=== PATIENT | female | born 1995 | race Caucasian/White ===

== ENCOUNTER 2022-10-04 11:46 | Emergency (ER) | payer MEDICAID, SELFPAY ==
[2022-10-04] MEDS ORDERED: Acetaminophen 500 MG TAB ONE (12:39)
[2022-10-04] MEDS ORDERED: Ondansetron PF 4 MG/2 ML Vial ONE (12:39)
[2022-10-04 12:40] LABS: Bilirubin Neg (Negative); Blood, Urine 10 (Negative); Clarity Cloudy (Clear); Glucose, Urine (Dipstick) Normal (Negative); Ketone, Urine 50 mg/dL (Negative); Leukocyte 500 (Negative); Nitrite Negative (Negative); Protein, Urine (Dipstick) 15 mg/dl (Neg-Trace); Specific Gravity, Urine 1.015 (1.005-1.030); Urobilinogen Normal mg/dL (Less than 2)
[2022-10-04 12:42] LABS: #Monocytes 0.4 10x3/uL (0.0-1.1); #Neutrophils 5.3 10x3/uL (1.5-8.4); %Basophils 0.4 % (0.0-2.0); %Lymphocytes 22.8 % (18.0-47.0); %Monocytes 5.6 % (0.0-10.0); %Neutrophils 70.9 % (40.0-75.0); Hemoglobin 11.4 g/dL (12.0-15.5); Mean Corpuscular HGB CONC 32.9 g/dL (32.0-36.0); Mean Corpuscular Hemoglobin 25.5 pg (27.0-33.0); Mean Corpuscular Volume 77.6 fl (81.6-98.3); Platelet Count 307 10x3/uL (150-450); RBC Distribution Width 14.8 % (11.5-14.5); Red Blood Cell (RBC) Count 4.47 10x6/uL (3.90-5.03); White Blood Cell (WBC) Count 7.5 10x3/uL (3.5-10.5)
[2022-10-04 12:56] LABS: ALT (SGPT) 16 U/L (8-55); AST (SGOT) 17 U/L (5-34); Albumin 4.2 g/dL (3.5-5.0); Alkaline Phosphatase 75 U/L (40-110); Anion Gap 13 mmol/L (10-20); BUN (Urea Nitrogen) 11 mg/dL (7.0-18.7); Bilirubin, Total 0.6 mg/dL (0.2-1.2); Calc. Creatinine Clearance 0 mL/min (70-130); Calcium 9.6 mg/dL (7.8-10.44); Carbon Dioxide 23 mmol/L (22-29); Chloride 105 mmol/L (98-107); Estimated GFR 124; Globulin 3.2 g/dL (2.4-3.5); Glucose 92 mg/dL (70-105); Lipase 10 U/L (8-78); Potassium 3.9 mmol/L (3.5-5.1); Protein, Total 7.4 g/dL (6.0-8.3); Sodium 137 mmol/L (136-145)
[2022-10-04 12:58] LABS: RBC/HPF 0-3 HPF (0-3)
[2022-10-04 12:59] LABS: Bacteria/HPF None Seen HPF (None Seen); WBC/HPF 0-3 HPF (0-3)
[2022-10-04] MEDS ORDERED: Morphine 4 MG/ML VIAL ONE (13:40)
== END 2022-10-04 15:41 | disposition home or self-care (01) ==
LOC: CSHERS 11:46
DX: O21.9 Vomiting of pregnancy, unspecified (principal); O26.891 Other specified pregnancy related conditions, first trimester; R10.12 Left upper quadrant pain; Z3A.08 8 weeks gestation of pregnancy
CPT/HCPCS: 36415; 76856; 80053; 81003; 81015; 83690; 84702; 85025; 86900; 86901; 96361; 96374; 96375; J2270; J2405

== ENCOUNTER 2022-11-02 18:26 | Emergency (ER) | payer MEDICAID, OTHER ==
[2022-11-02] MEDS ORDERED: Metoclopramide HCl 10 MG TAB ONE (19:03)
[2022-11-02] MEDS ORDERED: Acetaminophen 500 MG TAB ONE (19:22)
[2022-11-02] MEDS ORDERED: Pantoprazole 40 MG VIAL ONE (19:22)
[2022-11-02 19:51] LABS: #Monocytes 0.5 10x3/uL (0.0-1.1); #Neutrophils 5.5 10x3/uL (1.5-8.4); %Basophils 0.4 % (0.0-2.0); %Eosinophils 0.1 % (0.0-6.0); %Lymphocytes 24.5 % (18.0-47.0); %Monocytes 6.1 % (0.0-10.0); %Neutrophils 68.8 % (40.0-75.0); Hemoglobin 10.4 g/dL (12.0-15.5); Mean Corpuscular HGB CONC 32.2 g/dL (32.0-36.0); Mean Corpuscular Hemoglobin 25.1 pg (27.0-33.0); Mean Platelet Volume 9.8 fl (7.4-10.4); Platelet Count 262 10x3/uL (150-450); RBC Distribution Width 14.7 % (11.5-14.5); Red Blood Cell (RBC) Count 4.14 10x6/uL (3.90-5.03)
[2022-11-02 20:04] LABS: ALT (SGPT) 15 U/L (8-55); AST (SGOT) 13 U/L (5-34); Albumin 3.8 g/dL (3.5-5.0); Alkaline Phosphatase 61 U/L (40-110); Anion Gap 12 mmol/L (10-20); BUN (Urea Nitrogen) 9 mg/dL (7.0-18.7); Bilirubin, Total 0.5 mg/dL (0.2-1.2); Calc. Creatinine Clearance 0 mL/min (70-130); Calcium 8.9 mg/dL (7.8-10.44); Carbon Dioxide 21 mmol/L (22-29); Chloride 106 mmol/L (98-107); Estimated GFR 126; Globulin 2.6 g/dL (2.4-3.5); Glucose 90 mg/dL (70-105); Potassium 3.7 mmol/L (3.5-5.1); Protein, Total 6.4 g/dL (6.0-8.3); Sodium 135 mmol/L (136-145)
[2022-11-02 20:25] LABS: Bilirubin Neg (Negative); Blood, Urine Negative (Negative); Glucose, Urine (Dipstick) Normal (Negative); Ketone, Urine 150 mg/dL (Negative); Leukocyte 100 (Negative); Nitrite Negative (Negative); Protein, Urine (Dipstick) 30 mg/dl (Neg-Trace); Specific Gravity, Urine 1.025 (1.005-1.030)
[2022-11-02 20:42] LABS: Clarity Cloudy (Clear)
[2022-11-02 20:57] LABS: RBC/HPF 0-3 HPF (0-3)
[2022-11-02 21:00] LABS: Bacteria/HPF 3+ HPF (None Seen); Mucous/LPF 2+ LPF (<2+)
== END 2022-11-02 22:18 | disposition home or self-care (01) ==
LOC: CSHERS 18:26
DX: O21.9 Vomiting of pregnancy, unspecified (principal); O99.281 Endocrine, nutritional and metabolic diseases complicating pregnancy, first trimester; E86.0 Dehydration; Z3A.11 11 weeks gestation of pregnancy
CPT/HCPCS: 80053; 81003; 81015; 82010; 85025; 96361; 96374; C9113

== ENCOUNTER 2023-05-06 18:05 | Inpatient (IN) | payer OTHER ==
[2023-05-06 18:56] VITALS: BMI 46.6
[2023-05-06] MEDS ORDERED: Acetaminophen 325 MG TAB PO PRN (21:10)
[2023-05-06] MEDS ORDERED: fentaNYL 50 mcg/mL 1 mL Vial SLOW IVP PRN (22:01)
[2023-05-06] MEDS ORDERED: Lidocaine 1% (PF) 30 ML VIAL SC PRN (22:01)
[2023-05-06] MEDS ORDERED: Methylergonovine 0.2 MG/ML VIAL IM PRN (22:01)
[2023-05-06] MEDS ORDERED: Zolpidem Tartrate 5 MG TAB PO PRN (22:01)
[2023-05-06] MEDS ORDERED: Ondansetron PF 4 MG/2 ML Vial IVP PRN (22:01)
[2023-05-06] MEDS ORDERED: Diphenoxylate HCl/Atropine Tablet PO PRN (22:01)
[2023-05-06] MEDS ORDERED: hydrALAZINE 20 MG/ML VIAL SLOW IVP PRN (22:01)
[2023-05-06] MEDS ORDERED: Misoprostol 200 MCG TAB PR PRN (22:01)
[2023-05-06] MEDS ORDERED: Promethazine HCl 25 MG/ML VIAL IM PRN (22:01)
[2023-05-06] MEDS ORDERED: Tranexamic Acid 1,000 MG/10 ML VIAL IVP PRN (22:01)
[2023-05-06] MEDS ORDERED: Carboprost 250 MCG/ML AMP IM PRN (22:01)
[2023-05-06] MEDS: Lactated Ringer's 1,000 ML IV SCH (22:30)
[2023-05-06] MEDS ORDERED: Penicillin G Potassium 5 MILL.UNITS in Sodium Chloride 0.9% 100 ML IVPB SCH (23:00)
[2023-05-06 23:01] LABS: Hematocrit 30.7 % (34.9-44.5); Hemoglobin 9.2 g/dL (12.0-15.5); Mean Corpuscular Hemoglobin 21.2 pg (27.0-33.0); Mean Corpuscular Volume 70.7 fl (81.6-98.3); Platelet Count 274 10x3/uL (150-450); RBC Distribution Width 17.3 % (11.5-14.5); Red Blood Cell (RBC) Count 4.34 10x6/uL (3.90-5.03); White Blood Cell (WBC) Count 8.8 10x3/uL (3.5-10.5)
[2023-05-06] MEDS ORDERED: Penicillin G Potassium 5 MILL.UNITS VIAL ONE (23:03)
[2023-05-06 23:33] LABS: HBSAg Index 0.25 S/CO (0-0.99); Hep B Surf Ag - L&D Non-Reactive S/CO (NonReactive); Syphilis Antibody Nonreactive (Nonreactive); Syphilis Antibody Index 0.08 S/CO (<1.00 Non-Reactive)
[2023-05-06] MEDS ORDERED: fentaNYL/Ropivacaine Epidural 100 ML ONE (23:47)
[2023-05-06 23:49] LABS: HIV (1/2) Antibody/Antigen Non-Reactive (NonReactive); HIV 1/2 INDEX 0.15 S/CO (<1.00)
[2023-05-07] MEDS ORDERED: Moisturizing Cream (Eucerin) 113 GM JAR TOP PRN (01:38)
[2023-05-07] MEDS ORDERED: Naloxone HCl 0.4 mg/ml Vial IVP PRN ×2 (01:38)
[2023-05-07] MEDS ORDERED: Lactated Ringer's 500 ML IV PRN (01:38)
[2023-05-07] MEDS ORDERED: Ondansetron PF 4 MG/2 ML Vial IVP PRN (01:38)
[2023-05-07] MEDS ORDERED: Promethazine HCl 25 MG/ML VIAL IM PRN (01:38)
[2023-05-07] MEDS ORDERED: ePHEDrine Sulfate 50 MG/10 ML VIAL SLOW IVP PRN (01:38)
[2023-05-07] MEDS ORDERED: Acetaminophen 325 MG TAB PO PRN (01:38)
[2023-05-07] MEDS ORDERED: diphenhydrAMINE 50 MG/ML VIAL IVP PRN (01:38)
[2023-05-07] MEDS ORDERED: fentaNYL 2 mcg/Ropivacaine 0.2% Epidural 100 ML CADD EPIDURAL SCH (01:45)
[2023-05-07] MEDS ORDERED: Communication Order-Pharmacy FS SCH (01:45)
[2023-05-07] MEDS: NS w/ Oxytocin 30 units 500 ML IV SCH ×2 (02:03→17:27)
[2023-05-07] MEDS: Penicillin G 2.5 MILL.units 2.5 MILL.UNITS in Premix Bag 1 BAG IVPB SCH ×5 (02:05→20:48)
[2023-05-07] MEDS: Lactated Ringer's 1,000 ML IV SCH ×2 (07:41→09:29)
[2023-05-07] MEDS ORDERED: Boostrix 0.5 ML (Tdap) VIAL (>/=7 yrs of age) IM ONE (20:36)
[2023-05-07] MEDS ORDERED: diphenhydrAMINE 25 MG CAP PO PRN (20:36)
[2023-05-07] MEDS ORDERED: Bisacodyl 10 MG SUPP PR PRN (20:36)
[2023-05-07] MEDS ORDERED: Milk Of Magnesia 30 ML UDCUP PO PRN (20:36)
[2023-05-07] MEDS ORDERED: hydrALAZINE 20 MG/ML VIAL SLOW IVP PRN (20:36)
[2023-05-07] MEDS: Docusate 100 MG CAP PO SCH (21:19)
[2023-05-07] MEDS: Ibuprofen 800 MG TAB PO SCH (21:19)
[2023-05-08] MEDS: Ibuprofen 800 MG TAB PO SCH ×3 (06:05→21:39)
[2023-05-08] MEDS: Ferrous Sulfate 325 MG TAB PO SCH ×2 (11:02→21:39)
[2023-05-08] MEDS: Docusate 100 MG CAP PO SCH ×2 (11:02→21:39)
[2023-05-08] MEDS ORDERED: Bupivacaine 0.25% HCL 30 ML VIAL ONE (19:47)
[2023-05-08] MEDS ORDERED: ePHEDrine Sulfate 50 MG/10 ML VIAL ONE (19:47)
[2023-05-09] MEDS: Ibuprofen 800 MG TAB PO SCH ×2 (05:55→17:13)
[2023-05-09] MEDS: Ferrous Sulfate 325 MG TAB PO SCH ×2 (07:51→17:10)
[2023-05-09] MEDS: Docusate 100 MG CAP PO SCH ×2 (07:51→21:02)
[2023-05-09 21:24] VITALS: BP 119/64; TEMP 98
== END 2023-05-09 21:10 | disposition home or self-care (01) | DRG 807 ==
LOC: CSHLD/OP 18:05 → CSHLD 21:50 → CSHPP 05-08 13:45 → CSHLD 05-08 13:52 → CSHPP 05-08 21:05
PROVIDERS: ADMIT Obstetrics & Gynecology; ATTEND Obstetrics & Gynecology
PROC: 10E0XZZ Delivery of Products of Conception, External Approach (ICD-10-PCS; principal; 2023-05-07)
PROC: 10907ZC Drainage of Amniotic Fluid, Therapeutic from Products of Conception, Via Natural or Artificial Opening (ICD-10-PCS; 2023-05-07)
PROC: 10H07YZ Insertion of Other Device into Products of Conception, Via Natural or Artificial Opening (ICD-10-PCS; 2023-05-07)
DX: O42.02 Full-term premature rupture of membranes, onset of labor within 24 hours of rupture (principal); Z37.0 Single live birth; E03.9 Hypothyroidism, unspecified; O35.BXX0 Maternal care for other (suspected) fetal abnormality and damage, fetal cardiac anomalies, not applicable or unspecified; O99.284 Endocrine, nutritional and metabolic diseases complicating childbirth; Z3A.38 38 weeks gestation of pregnancy; Z79.890 Hormone replacement therapy
CPT/HCPCS: 36415; 51702; 85027; 86780; 86850; 86900; 86901; 87340; 87389; 99285; J2405; J2540; J2590; J3490; J7120; S0020

== ENCOUNTER 2024-08-23 18:43 | Emergency (ER) | payer OTHER | END 2024-08-23 19:35 | disposition left against medical advice (07) | LOC: CSHERS 18:43 | DX: Z53.21 Procedure and treatment not carried out due to patient leaving prior to being seen by health care provider (principal) ==